=== PATIENT | male | born 1975 | race Caucasian/White ===

== ENCOUNTER 2018-11-22 14:03 | Emergency (ER) | payer BC ==
[~2018-11-22] VITALS: Ht 188 cm; Wt 158.8 kg
[2018-11-22 14:11] VITALS: BP 149/101
--- NOTE | 2018-11-22 14:30 | NUR ---
WAIT IN LOBBY. VSS
--- NOTE | 2018-11-22 14:44 | NUR ---
PT AMBULATED TO ER BED 11
--- NOTE | 2018-11-22 14:48 | NUR ---
43 Y MALE BIB SELF AFTER BEING REFERRED FROM URGENT CARE FOR ABNORMAL EKG. PATIENT BROUGHT IN PAPERWORK FROM [facility] ALTHOUGH NO EKG RESULTS ARE ATTACHED. C/O DIZZINESS, NAUSEA, LEFT CHEST PAIN NON RADIATING X TODAY. PATIENT STATES PAIN STARTED WHILE HE WAS WALKING THROUGH [employer]. PT STATES HE HAS EXPERIENCED AN INCREASED STRESS LOAD THIS WEEK. PT BP 149/101. AA0X4. PT ON MONITOR. BED IS DOWN, LOCKED, BED RAIL X 1, ERMD TO SEE PT. RX-DENIES MED HX:DENIES
--- NOTE | 2018-11-22 15:00 | NUR ---
LABS DRAWN BEDSIDE
--- NOTE | 2018-11-22 15:21 | NUR ---
DR CATALAN BEDSIDE
--- NOTE | 2018-11-22 15:33 | NUR ---
ELEAZAR SMITH FOR ABGS
[2018-11-22 15:39] LABS: BASOPHILS % (AUTO) 0.5 % (0.0-2.0); EOSINOPHILS # (AUTO) 0.2 K/uL (0-0.4); EOSINOPHILS % (AUTO) 2.2 % (0.0-4.0); HEMOGLOBIN 16.4 g/dL (12.0-18.0); LYMPHOCYTES # (AUTO) 1.6 K/uL (2.0-11.5); LYMPHOCYTES % (AUTO) 21.4 % (20.5-51.1); MEAN CORPUSCULAR HEMOGLOBIN 30 pg (27-31); MEAN CORPUSCULAR HGB CONC 33 g/dL (33-37); MEAN CORPUSCULAR VOLUME 89.9 fL (80-94); MONOCYTES # (AUTO) 0.5 K/uL (0.8-1.0); MONOCYTES % (AUTO) 6.9 % (1.7-9.3); NEUTROPHILS # (AUTO) 5.2 K/uL (1.8-7.7); PLATELET COUNT (AUTO) 194 K/uL (140-450); RED BLOOD CELL COUNT(AUTO) 5.45 MIL/uL (4.20-6.10); WHITE BLOOD COUNT (AUTO) 7.6 K/uL (4.8-10.8)
--- NOTE | 2018-11-22 15:49 | NUR ---
XRAY AT BEDSIDE
[2018-11-22 15:57] LABS: BARBITURATE, URINE NEG. ng/ml (NEG <=200); BENZODIAZEPINE, URINE NEG. ng/mL (NEG <=200); CANNABINOID, URINE NEG. ng/mL (NEG <=50); COCAINE, URINE NEG. ng/mL (NEG <=300); OPIATE, URINE NEG. ng/mL (NEG <=2000); PHENCYCLIDINE SCREEN,URINE NEG. ng/mL (NEG <=25)
[2018-11-22 15:58] LABS: ANION GAP 13.1 (8-16); CARBON DIOXIDE 27.7 mmol/L (21-32); POTASSIUM 3.8 mmol/L (3.5-5.1); TOTAL BILIRUBIN 1.2 mg/dL (0.0-1.0)
[2018-11-22 16:11] LABS: D-DIMER < 100 ng/ml (0-400)
[2018-11-22 16:17] LABS: PROTHROMBIN TIME 10.2 secs (10.8-13.4)
[2018-11-22 17:27] VITALS: BP 141/97
== END 2018-11-22 17:27 | disposition home or self-care (01) ==
LOC: MED 14:03
DX: R07.89 Other chest pain (principal); E66.9 Obesity, unspecified; R03.0 Elevated blood-pressure reading, without diagnosis of hypertension; Z68.41 Body mass index [BMI] 40.0-44.9, adult
CPT/HCPCS: 36415; 36600; 71045; 80053; 80305; 82803; 83735; 83880; 84484; 85025; 85379; 85610; 85730; 93005; 99284; G0482; Q0092